=== PATIENT | male | born 1985 | race Caucasian/White ===

== ENCOUNTER 2019-10-29 09:55 | Emergency (ER) | payer OTHER ==
[2019-10-29] MEDS ORDERED: METHOCARBAMOL 1,000 MG/10 ML VIAL IV ONE (10:38)
[2019-10-29] MEDS ORDERED: FENTANYL CITR 100 MCG/2 ML ONE (10:38)
[2019-10-29] MEDS ORDERED: NA CHLORIDE 0.9% 100 ML IV ONE (10:38)
[2019-10-29] MEDS ORDERED: ONDANSETRON 4 MG/2 ML VIAL ONE (10:38)
[2019-10-29 10:53] LABS: Absolute Lymphocytes (CBC) 1.6 K/uL (0.7-4.9); Basophils % 0.6 % (0-1.3); Hematocrit 46.3 % (39.6-49.0); Lymphocytes % 26.4 % (15.3-44.8); MPV 7.7 fL (7.6-11.3); RBC Red Blood Cell Count 5.38 M/uL (4.33-5.43)
[2019-10-29 11:18] LABS: ALT/SGPT 67 U/L (12-78); AST/SGOT 24 U/L (15-37); Albumin 3.9 g/dL (3.4-5.0); Alkaline Phosphatase 60 U/L (45-117); BUN Blood Urea Nitrogen 12 mg/dL (7-18); Bicarbonate 27 mmol/L (21-32); Bilirubin Direct < 0.1 mg/dL (0-0.2); Bilirubin Total 0.3 mg/dL (0.2-1.0); Glucose Level 103 mg/dL (74-106); Lipase 61 U/L (73-393); Potassium 4.1 mmol/L (3.5-5.1); Protein, Total 8.2 g/dL (6.4-8.2); Sodium Level 140 mmol/L (136-145)
--- NOTE | 2019-10-29 11:46 | RAD REPORT ---
EXAM DESCRIPTION: CTAbdomen Pelvis W Contrast - 10/29/2019 11:36 am CLINICAL HISTORY: Abdominal pain. Abd pain;Flank pain COMPARISON: No comparisons TECHNIQUE: Biphasic CT imaging of the abdomen and pelvis was performed with 100 ml non-ionic IV cont rast. All CT scans are performed using dose optimization technique as appropriate and may include automated exposure control or mA/KV adjustment according to patient size. FINDINGS: The lung bases are clear. The liver, spleen, pancreas, adrenal glands and kidneys are within normal limits. No bowel obstruction, free air, free fluid or abscess. Small fat containing umbilical hernia. The slim endix is normal. No evidence of significant lymphadenopathy. Prominent posterior disc bulge with small endplate osteophyte at L4-5. IMPRESSION: No acute intra-abdominal or pelvic finding. Small fat containing umbilical hernia.
--- NOTE | 2019-10-29 12:02 | ER ---
Nurse's Notes [facility] Name: Kehinde Polo Age: 34 yrs Sex: Male : 1985 Arrival Date: 10/29/2019 Time: 09:59 Bed 20 Private MD: Diagnosis: Muscle spasm of back Presentation: 10/28 10:15 Chief complaint: Patient states: bilateral flank pain that began yesterday evening. ss Denies N/V/D. Coronavirus screen: Proceed with normal triage. Patient denies a cough. Patient denies shortness of breath or difficulty breathing. Patient denies measured and/or subjective temperature greater than 100.4F prior to today's visit. Patient denies travel on a cruise ship or to a country the [facility] currently lists as an affected area. Patient denies contact with known and/or suspected case of COVID-19. Ebola Screen: Patient denies exposure to infectious person. Patient denies travel to an Ebola-affected area in the 21 days before illness onset. Initial Sepsis Screen: Does the patient meet any 2 criteria? No. Patient's initial sepsis screen is negative. Does the patient have a suspected source of infection? No. Patient's initial sepsis screen is negative. Risk Assessment: Do you want to hurt yourself or someone else? Patient reports no desire to harm self or others. Onset of symptoms was October 28, 2019. 10:15 Method Of Arrival: Ambulatory 10:15 Acuity: NEVAEH 3 ss Historical: - Allergies: 10:18 No Known Allergies; ss - Home Meds: 10:18 None [Active]; ss - PMHx: 10:18 Kidney stones; ss - PSHx: 10:18 None; ss - Immunization history:: Adult Immunizations up to date. - Social history:: Smoking status: Patient reports the use of cigarette tobacco products, smokes one pack cigarettes per day. Screenin:17 Abuse screen: Denies threats or abuse. Nutritional screening: No deficits noted. Tuberculosis screening: No symptoms or risk factors identified. Fall Risk None identified. Assessment: 10:20 General: Appears uncomfortable, Behavior is calm, cooperative, appropriate for age. Pain: Pain radiates to mid back area Pain currently is 10 out of 10 on a pain scale. Quality of pain is described as sharp, throbbing, pulsating, Pain began 1 day ago. Is continuous. Neuro: Level of Consciousness is awake, alert, obeys commands, Oriented to person, place, time, situation. Cardiovascular: Capillary refill < 3 seconds Patient's skin is warm and dry. Respiratory: Airway is patent Respiratory effort is even, unlabored. : Denies burning with urination. Derm: Skin is intact, is healthy with good turgor, Denies injury. 11:32 Reassessment: Pt to radiology for CT. 12:30 Reassessment: Patient and/or family updated on plan of care and expected duration. Pain ah level reassessed. Patient is alert, oriented x 3, equal unlabored respirations, skin warm/dry/pink. Patient states symptoms have improved. Vital Signs: 10:15 BP 139 / 81; Pulse 82; Resp 16; Temp 97.7(TE); Pulse Ox 99% on R/A; Weight 136.08 kg; ss Pain 7/10; 10:30 BP 132 / 81; Pulse 74; Resp 18; Pulse Ox 98% ; ah 11:30 BP 124 / 78; Pulse 64; Resp 18; Pulse Ox 94% ; ah 12:51 BP 119 / 58; Pulse 63; Resp 18; Pulse Ox 98% ; ah ED Course: 09:59 Patient arrived in ED. fj1 10:07 Ant Echeverria PA is PHCP. jr8 10:07 Jan Feliciano MD is Attending Physician. jr8 10:17 Triage completed. ss 10:18 Arm band placed on right wrist. ss 10:26 Delma Millard, RN is Primary Nurse. ah 11:36 CT Abd/Pelvis - IV Contrast Only In Process Unspecified. EDMS 13:17 Patient has correct armband on for positive identification. Bed in low position. Call light in reach. Side rails up X2. Pulse ox on. NIBP on. 13:18 No provider procedures requiring assistance completed. IV discontinued, intact, bleeding controlled, No redness/swelling at site. Pressure dressing applied. Administered Medications: 10:45 Drug: fentaNYL (PF) 75 mcg Route: IVP; Site: left antecubital; 13:19 Follow up: Response: No adverse reaction 10:45 Drug: Robaxin 1 grams Route: IVPB; Infused Over: 1 hrs; Site: left antecubital; 13:18 Follow up: Response: No adverse reaction; IV Status: Completed infusion 10:50 Drug: Zofran (Ondansetron) 4 mg Route: IVP; Site: left antecubital; 13:18 Follow up: Response: No adverse reaction Outcome: 12:01 Discharge ordered by MD. harding 12:15 Discharged to home via wheelchair. 12:15 Condition: good 12:15 Discharge instructions given to patient, Instructed on discharge instructions, follow up and referral plans. Demonstrated understanding of instructions, follow-up care, medications, Prescriptions given X 2. 13:19 Patient left the ED. Signatures: Dispatcher [employer] EDMS Ashanti Spaulding RN RN Ant Echeverria PA PA jr8 Guanaco Harvey fj Delma Millard, RN RN
--- NOTE | 2019-10-29 12:02 | EDPHYS ---
Physician Documentation [facility] Name: Kehinde Polo Age: 34 yrs Sex: Male : 1985 Arrival Date: 10/29/2019 Time: 09:59 Bed 20 Private MD: ED Physician Jan Feliciano HPI: 10/28 10:48 This 34 yrs old Male presents to ER via Ambulatory with complaints of Back jr8 Pain. 10:48 The patient presents with pain that is acute. The symptoms are located in the left jr8 flank and right flank. Onset: The symptoms/episode began/occurred acutely, today. The pain does not radiate. Associated signs and symptoms: The patient has no apparent associated signs or symptoms. The problem was sustained from unknown cause. Modifying factors: The patient symptoms are alleviated by nothing, the patient symptoms are aggravated by any movement. Severity of symptoms: At their worst the symptoms were moderate, in the emergency department the symptoms are unchanged. The patient has not experienced similar symptoms in the past. The patient has not recently seen a physician. Patient stated that he started to feel mild pain last night. Progressed through to today and now with any motion. Denies recent injury to back. Historical: - Allergies: 10:18 No Known Allergies; ss - Home Meds: 10:18 None [Active]; ss - PMHx: 10:18 Kidney stones; ss - PSHx: 10:18 None; ss - Immunization history:: Adult Immunizations up to date. - Social history:: Smoking status: Patient reports the use of cigarette tobacco products, smokes one pack cigarettes per day. ROS: 10:48 Eyes: Negative for injury, pain, redness, and discharge, ENT: Negative for injury, jr8 pain, and discharge, Neck: Negative for injury, pain, and swelling, Cardiovascular: Negative for chest pain, palpitations, and edema, Respiratory: Negative for shortness of breath, cough, wheezing, and pleuritic chest pain, Abdomen/GI: Negative for abdominal pain, nausea, vomiting, diarrhea, and constipation, MS/Extremity: Negative for injury and deformity, Skin: Negative for injury, rash, and discoloration, Neuro: Negative for headache, weakness, numbness, tingling, and seizure. 10:48 Back: Positive for pain at rest, pain with movement, flank pain, bilaterally. Exam: 10:48 Eyes: Pupils equal round and reactive to light, extra-ocular motions intact. Lids and jr8 lashes normal. Conjunctiva and sclera are non-icteric and not injected. Cornea within normal limits. Periorbital areas with no swelling, redness, or edema. ENT: Nares patent. No nasal discharge, no septal abnormalities noted. Tympanic membranes are normal and external auditory canals are clear. Oropharynx with no redness, swelling, or masses, exudates, or evidence of obstruction, uvula midline. Mucous membranes moist. Neck: Trachea midline, no thyromegaly or masses palpated, and no cervical lymphadenopathy. Supple, full range of motion without nuchal rigidity, or vertebral point tenderness. No Meningismus. Cardiovascular: Regular rate and rhythm with a normal S1 and S2. No gallops, murmurs, or rubs. Normal PMI, no JVD. No pulse deficits. Respiratory: Lungs have equal breath sounds bilaterally, clear to auscultation and percussion. No rales, rhonchi or wheezes noted. No increased work of breathing, no retractions or nasal flaring. Skin: Warm, dry with normal turgor. Normal color with no rashes, no lesions, and no evidence of cellulitis. MS/ Extremity: Pulses equal, no cyanosis. Neurovascular intact. Full, normal range of motion. Neuro: Awake and alert, GCS 15, oriented to person, place, time, and situation. Cranial nerves II-XII grossly intact. Motor strength 5/5 in all extremities. Sensory grossly intact. Cerebellar exam normal. Normal gait. 10:48 Abdomen/GI: Inspection: obese Bowel sounds: active, all quadrants, Palpation: soft, in all quadrants, mild abdominal tenderness, in the anterior aspect of left lateral abdomen and anterior aspect of right lateral abdomen, mass, is not appreciated, rebound tenderness, is not appreciated, voluntary guarding, is not appreciated, involuntary guarding, is not appreciated, no appreciated organomegaly, Indicators: McBurney's point is not tender, Garrett's sign is negative, Rovsing's sign is negative, Liver: tenderness, is not appreciated. 10:48 Back: pain, that is mild, of the left flank and right flank, ROM is painful, with all movement, normal spinal alignment noted, CVA tenderness, is absent. Vital Signs: 10:15 BP 139 / 81; Pulse 82; Resp 16; Temp 97.7(TE); Pulse Ox 99% on R/A; Weight 136.08 kg; ss Pain 7/10; 10:30 BP 132 / 81; Pulse 74; Resp 18; Pulse Ox 98% ; ah 11:30 BP 124 / 78; Pulse 64; Resp 18; Pulse Ox 94% ; ah 12:51 BP 119 / 58; Pulse 63; Resp 18; Pulse Ox 98% ; ah MDM: 10:07 Patient medically screened. jr8 12:00 Data reviewed: vital signs, nurses notes, lab test result(s), radiologic studies, CT jr8 scan. Data interpreted: Pulse oximetry: on room air is 99 %. Interpretation: normal. Counseling: I had a detailed discussion with the patient and/or guardian regarding: the historical points, exam findings, and any diagnostic results supporting the discharge/admit diagnosis, lab results, radiology results, the need for outpatient follow up, a family practitioner, to return to the emergency department if symptoms worsen or persist or if there are any questions or concerns that arise at home. Response to treatment: the patient's symptoms have markedly improved after treatment. ED course: No acute intraabdominal or spinal findings. Most likely spasm. Will dc home to f/u with PCP. If worse to come back . 10/28 10:22 Order name: Basic Metabolic Panel; Complete Time: 11:33 10/28 10:22 Order name: CBC with Diff; Complete Time: 10:57 10/28 10:22 Order name: Hepatic Function; Complete Time: 11:33 10/28 10:22 Order name: Lipase; Complete Time: 11:10/28 11:13 Order name: CT Abd/Pelvis - IV Contrast Only; Complete Time: 11:59 10/28 10:22 Order name: IV Saline Lock; Complete Time: 10:58 10/28 10:22 Order name: Labs collected and sent; Complete Time: :58 Administered Medications: 10:45 Drug: fentaNYL (PF) 75 mcg Route: IVP; Site: left antecubital; 13:19 Follow up: Response: No adverse reaction 10:45 Drug: Robaxin 1 grams Route: IVPB; Infused Over: 1 hrs; Site: left antecubital; 13:18 Follow up: Response: No adverse reaction; IV Status: Completed infusion 10:50 Drug: Zofran (Ondansetron) 4 mg Route: IVP; Site: left antecubital; 13:18 Follow up: Response: No adverse reaction Disposition: 19:39 Co-signature as Attending Physician, Jan Feliciano MD. [email or web address] Disposition: 10/29/19 12:01 Discharged to Home. Impression: Muscle spasm of back. - Condition is Stable. - Discharge Instructions: Muscle Cramps and Spasms, Heat Therapy. - Prescriptions for Ibuprofen 800 mg Oral Tablet - take 1 tablet by ORAL route every 12 hours As needed take with food; 20 tablet. Zanaflex 4 mg Oral Tablet - take 1 tablet by ORAL route every 8 hours As needed; 20 tablet. - Medication Reconciliation Form, Thank You Letter, Antibiotic Education, Prescription Opioid Use form. - Follow up: Private Physician; When: 1 week; Reason: Recheck today's complaints, Continuance of care, Re-evaluation by your physician. - Problem is new. - Symptoms have improved. Signatures: Dispatcher [employer] EDAshanti Lopez RN RN Ant Echeverria PA PA jr8 Delma Millard RN RN ah Holmes, Maurice, MD MD [email or web address] Corrections: (The following items were deleted from the chart) 13:19 12:01 10/29/2019 12:01 Discharged to Home. Impression: Muscle spasm of back. Condition ah is Stable. Forms are Medication Reconciliation Form, Thank You Letter, Antibiotic Education, Prescription Opioid Use. Follow up: Private Physician; When: 1 week; Reason: Recheck today's complaints, Continuance of care, Re-evaluation by your physician. Problem is new. Symptoms have improved. jr8
[2019-10-29 13:26] VITALS: TEMP 97.7
[2019-10-29 13:30] VITALS: BP 119/58; O2SAT 98
== END 2019-10-29 13:19 | disposition home or self-care (01) ==
LOC: ER 09:55
DX: M62.830 Muscle spasm of back (principal); F17.210 Nicotine dependence, cigarettes, uncomplicated
CPT/HCPCS: 96365; 85025; 80048; 36415; 80076; 83690; 74177; 96375; 99284; 96366; Q9967; J3010; J2405; J2800